=== PATIENT | male | born 1995 | race Caucasian/White ===

== ENCOUNTER 2020-11-26 19:18 | Emergency (ER) | payer OTHER ==
[~2020-11-26] VITALS: Ht 182.9 cm; Wt 68.0 kg
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
[2020-11-26] MEDS ORDERED: IBUPROFEN 600 MG TABLET PO ONE (20:00)
[2020-11-26] MEDS ORDERED: IBUPROFEN 600 MG TABLET ONE (20:02)
--- NOTE | 2020-11-26 22:10 | NUR ---
DR ARIAS AT THE BED SIDE
--- NOTE | 2020-11-26 22:12 | NUR ---
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
[2020-11-26] MEDS ORDERED: HYDR-4209 PO (22:14)
--- NOTE | 2020-11-26 22:30 | NUR ---
DR. ARIAS ON PHONE WITH DR. DAVID
--- NOTE | 2020-11-26 23:29 | NUR ---
Patient discharged to home in stable condition. Written and verbal after care instructions given. Patient verbalizes understanding of instruction. Pt ambulatory with a steady gait with an aide of a pair of crutches
[2020-11-26 23:33] VITALS: BP 143/79
== END 2020-11-26 23:04 | disposition home or self-care (01) ==
LOC: ER 19:22
DX: S32.491A Other specified fracture of right acetabulum, initial encounter for closed fracture (principal); S80.211A Abrasion, right knee, initial encounter; V49.59XA Passenger injured in collision with other motor vehicles in traffic accident, initial encounter; Y93.89 Activity, other specified; Y92.413 State road as the place of occurrence of the external cause; Y99.8 Other external cause status
CPT/HCPCS: 72170-TC; 73700-TC

== ENCOUNTER 2022-10-23 14:24 | Emergency (ER) | payer OTHER ==
[~2022-10-23] VITALS: Ht 182.9 cm; Wt 70.3 kg
[~2022-10-23 14:24] MED LIST: HYDR-4209 PO
--- NOTE | 2022-10-23 14:30 | NUR ---
PT SEEN BY DR BROWN, WAITING FOR ORDERS
--- NOTE | 2022-10-23 14:47 | NUR ---
LAC 20G
--- NOTE | 2022-10-23 14:48 | NUR ---
BLOOD DRAWN AND SENT TO LAB
[2022-10-23] MEDS ORDERED: CEFTRIAXONE 1GM BAG (ER ONLY) 50 ML IV ONE (14:50)
[2022-10-23 14:54] LABS: BASOPHILS # (AUTO) 0.1 K/uL (0.0-0.2); BASOPHILS % (AUTO) 0.8 % (0.0-2.0); HEMATOCRIT 42 % (39-51); HEMOGLOBIN 13.8 g/dL (13.5-17.5); LYMPHOCYTES # (AUTO) 1.8 K/uL (0.8-4.8); LYMPHOCYTES % (AUTO) 14.6 % (20.0-44.0); MEAN CORPUSCULAR HGB CONC 33 g/dl (31.0-36.0); MEAN CORPUSCULAR VOLUME 84 fL (80-96); MONOCYTES % (AUTO) 8.2 % (2.0-12.0); NEUTROPHILS % (AUTO) 75.4 % (43.0-81.0); PLATELET COUNT (AUTO) 231 K/uL (150-450); RED BLOOD CELL COUNT(AUTO) 4.98 MIL/uL (4.5-6.0)
[2022-10-23] MEDS ORDERED: LIDOCAINE 100MG/5ML DISP SYR ONE (14:57)
[2022-10-23] MEDS ORDERED: CEFTRIAXONE 1 G in IV D5W 50 ML IV ONE (15:00)
[2022-10-23 15:04] LABS: CALCIUM, SERUM 9.7 mg/dL (8.5-10.1); CREATININE 1.1 mg/dL (0.6-1.3); POTASSIUM 3.8 mmol/L (3.5-5.1)
[2022-10-23] MEDS ORDERED: SULFAMETH/TRIMETH 800/160 MG 1 UDTAB TABLET PO ONE (15:30)
[2022-10-23] MEDS ORDERED: HYDROCODONE/APAP 10/325MG TABLET PO ONE (15:30)
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
--- NOTE | 2022-10-23 15:32 | NUR ---
WOUND CULTURE COLLECTED AND SENT TO LAB
[2022-10-23] MEDS ORDERED: SULFAMETH/TRIMETH 800/160 MG 1 UDTAB TABLET ONE (15:51)
[2022-10-23] MEDS ORDERED: HYDROCODONE/APAP 10/325MG TABLET ONE (15:51)
[2022-10-23] MEDS ORDERED: SULF1TAB48 PO (16:04)
[2022-10-23] MEDS ORDERED: CEPH500T PO (16:04)
[2022-10-23] MEDS ORDERED: TRAM50TA2 PO (16:04)
--- NOTE | 2022-10-23 17:00 | NUR ---
IV removed. Catheter intact and site benign. Pressure and 4x4 applied to site. No bleeding noted.Patient discharged to home in stable condition. Written and verbal after care instructions given. Patient verbalizes understanding of instruction.
[2022-10-23 17:07] VITALS: BP 138/80
== END 2022-10-23 17:00 | disposition home or self-care (01) ==
LOC: ER 14:27
DX: L03.011 Cellulitis of right finger (principal)
CPT/HCPCS: 99284; 96365; 10060; 73130; 85025; 80048; 36415; J2001; J0696 ×2; J7060; A6407

== ENCOUNTER 2022-12-27 19:49 | Emergency (ER) | payer OTHER ==
[~2022-12-27 19:49] MED LIST changes: +CEPH500T PO; +SULF1TAB48 PO; +TRAM50TA2 PO
== END 2022-12-27 20:01 | disposition left against medical advice (07) ==
LOC: ER 19:57
DX: Z53.21 Procedure and treatment not carried out due to patient leaving prior to being seen by health care provider (principal)